=== PATIENT | female | born 1960 | race Caucasian/White ===

== ENCOUNTER → 2017-05-07 | Outpatient (CLI) | payer BC ==
[~2017-05-07] MED LIST: DIUREX WATER P1 EACH PO; GLUCOSAMINE HC500 MG PO; L-LYSINE500 M1 PO; VOLTAREN75 MG PO; ZOLOFT50 MG PO
--- NOTE | 2017-05-07 10:30 | NUR ---
Met with patient prior to breast biopsy. Introduced self and role of nurse navigator. Told patient I would call tomorrow to see how her biopsy site is. No questions or concerns.
--- NOTE | 2017-05-08 15:12 | NUR ---
Called patient post breast biopsy. Patient states biopsy site is fine. No questions or concerns.
== END | disposition disaster alternative care site (69) ==
LOC: GPOC 04-30 13:00 → GBCOE 09:15 → GPOC 10:00
PROC: 0HBT3ZX Excision of Right Breast, Percutaneous Approach, Diagnostic (ICD-10-PCS; principal; 2017-05-07)
DX: R92.1 Mammographic calcification found on diagnostic imaging of breast (principal)
CPT/HCPCS: J7050